=== PATIENT | male | born 1960 | race Caucasian/White ===

== ENCOUNTER 2019-09-07 16:51 | Emergency (ER) | payer SELFPAY ==
[~2019-09-07] VITALS: Ht 170.2 cm; Wt 90.7 kg
[2019-09-07] MEDS ORDERED: LISINOPRIL20 MG PO (19:02)
[2019-09-07 19:07] LABS: ANION GAP 13.4 mmol/L (8-16); BLOOD UREA NITROGEN 13 mg/dL (7-26); BUN/CREATININE RATIO 15 (6-25); CALCIUM 9.3 mg/dL (8.4-10.2); CARBON DIOXIDE 25 mmol/L (22-29); CHLORIDE 106 mmol/L (98-107); CREATININE, SERUM 0.86 mg/dL (0.72-1.25); EST GLOMERULAR FILTRATION RATE > 60 ML/MIN (60-); GLUCOSE 99 mg/dL (74-118); POTASSIUM 4.4 mmol/L (3.5-5.1); SODIUM 140 mmol/L (136-145)
[2019-09-07 19:33] VITALS: BP 160/98
== END 2019-09-07 19:35 | disposition home or self-care (01) ==
LOC: ER 16:51
DX: I10 Essential (primary) hypertension (principal); F41.9 Anxiety disorder, unspecified
CPT/HCPCS: 36415; 80048; 93005; 99283